=== PATIENT | male | born 1970 | race Caucasian/White ===

== ENCOUNTER 2018-07-06 14:02 | Emergency (ER) | payer MEDICARE, MEDICAID, SELFPAY ==
[2018-07-06 14:07] VITALS: BP 160/78; PULSE 63; PULSE 64; RESP 18; TEMP 36.7; O2SAT 99; BMI 19.2
[2018-07-06] MEDS: MethylPREDNISolone 125 MG/2 ML Vial 60 MG IV (15:14)
--- NOTE | 2018-07-06 16:06 | ED.VISSUMM ---
- ER Visit Summary Date of Service: 07/06/18 Chief Complaint: Allergic reaction History of Present Illness: The patient is a 48 M with no sniffing past medical history presents with swelling of his throat, change in voice generalized rash with abdominal pain and nausea 30 minutes after drinking coffee with hazelnut flavoring. He has no known history of allergies to any food types. He received 50 mg of Benadryl IV per squad prior to arrival. Upon arrival he states his voice is no longer muffled and his throat does not feel swollen. Sister states he called her and his voice was muffled. She made the comment I thought he was having a stroke. The complains of generalized pruritic erythematous rash. He denies shortness of breath or wheezing. He denied drooling. He reported lightheadedness. Physical Examination: Vital signs noted. Patient has a blanching generalized erythematous rash from his hairline to his ankles. Head is atraumatic normocephalic. Pupils are equal round reactive. Extraocular muscles are intact. TMs are pearly white with landmarks noted. Nares patent with no drainage. Posterior pharynx without erythema or exudate. Uvula is midline. There is no dysphonia or dysphasia. There is no angioedema of the tongue, uvula or lips. Trachea is midline. There is no stridor with auscultation of the neck. Heart is regular without murmur, gallop or rub. S1 and S2 are normal. Lungs are clear to auscultation with good movement of air bilaterally. Abdomen is soft nontender bowel sounds are diminished. Neuro exam is nonfocal. There is a fine generalized blanching erythematous rash that is confluent. Test Results: None Emergency Department Course and Treatment: Patient received 20 mg of Pepcid and 60 mg of Solu-Medrol. He was observed until 1600. His rash has improved 75+ percent. He has no other symptoms at this time. Treatment Plan: Referral to Dr. Sanna Shaw since he is insured without physician for allergy testing. He was given a prescription for EpiPen and instructed not to consume anything that has knots in it. Disposition: Discharge with outpatient follow-up for allergy testing Impression: Generalized allergic reaction This note was generated with [employer] dictation software. It may contain incorrect words, spelling, and punctuation that were not noted in review of the chart prior to signing ED Disposition - Plan for ED Patient: Disposition: Home or Assisted Living Chief Complaint: Allergic Reaction Instructions: ED Allergic Reaction General Other Prescriptions: Epinephrine [Epipen] 0.3 mg IJ UD #1 auto.injct Prednisone [Deltasone] 40 mg PO DAILY #8 tablet Famotidine [Pepcid] 20 mg PO BID #10 tablet Referrals: Amrit Salas MD [Primary Care Provider] - Sanna Shaw DO [STAFF PHYSICIAN] - 3-5 Days Additional Instructions: Your prescriptions were electronically transmitted to [facility] pharmacy located on [address] [facility]
--- NOTE | 2018-07-06 16:11 | ED.DCSUM_ITS ---
- ER Visit Summary Date of Service: 07/06/18 Chief Complaint: Allergic reaction History of Present Illness: The patient is a 48 M with no sniffing past medical history presents with swelling of his throat, change in voice generalized rash with abdominal pain and nausea 30 minutes after drinking coffee with hazelnut flavoring. He has no known history of allergies to any food types. He received 50 mg of Benadryl IV per squad prior to arrival. Upon arrival he states his voice is no longer muffled and his throat does not feel swollen. Sister states he called her and his voice was muffled. She made the comment I thought he was having a stroke. The complains of generalized pruritic erythematous rash. He denies shortness of breath or wheezing. He denied drooling. He reported lightheadedness. Physical Examination: Vital signs noted. Patient has a blanching generalized e rythematous rash from his hairline to his ankles. Head is atraumatic normocephalic. Pupils are equal round reactive. Extraocular muscles are intact. TMs are pearly white with landmarks noted. Nares patent with no drainage. Posterior pharynx without erythema or exudate. Uvula is midline. There is no dysphonia or dysphasia. There is no angioedema of the tongue, uvula or lips. Trachea is midline. There is no stridor with auscultation of the neck. Heart is regular without murmur, gallop or rub. S1 and S2 are normal. Lungs are clear to auscultation with good movement of air bilaterally. Abdomen is soft nontender bowel sounds are diminished. Neuro exam is nonfocal. There is a fine generalized blanching erythematous rash that is confluent. Test Results: None Emergency Department Course and Treatment: Patient received 20 mg of Pepcid and 60 mg of Solu-Medrol. He was observed until 1600. His rash has improved 75+ percent. He has no other symptoms at this time. Treatment Plan: Referral to Dr. Sanna Shaw since he is insured without physician for allergy testing. He was given a prescription for EpiPen and instructed not to consume anything that has knots in it. Disposition: Discharge with outpatient follow-up for allergy testing Impression: Generalized allergic reaction This note was generated with [employer] dictation software. It may contain incorrect words, spelling, and punctuation that were not noted in review of the chart prio r to signing ED Disposition - Plan for ED Patient: Disposition: Home or Assisted Living Chief Complaint: Allergic Reaction Instructions: ED Allergic Reaction General Other Prescriptions: Epinephrine [Epipen] 0.3 mg IJ UD #1 auto.injct Prednisone [Deltasone] 40 mg PO DAILY #8 tablet Famotidine [Pepcid] 20 mg PO BID #10 tablet Referrals: Amrit Salas MD [Primary Care Provider] - Sanna Shaw DO [STAFF PHYSICIAN] - 3-5 Days Additional Instructions: Your prescriptions were electronically transmitted to [facility] pharmacy located on [address] [facility]
[2018-07-06 16:59] VITALS: BP 122/78; PULSE 76; RESP 16; O2SAT 97
== END 2018-07-06 17:01 | disposition home or self-care (01) ==
PROVIDERS: Emergency Provider Emergency Medicine; Family Provider Family Medicine; PCP Family Medicine
DX: T78.40XA Allergy, unspecified, initial encounter (principal); L50.9 Urticaria, unspecified; Z72.0 Tobacco use
CPT/HCPCS: 96374; 99285; J7030; A4216; J3490